=== PATIENT | female | born 2000 | race African-American/Black ===

== ENCOUNTER 2025-04-12 14:26 | Emergency (ER) | payer MEDICAID ==
[~2025-04-12] VITALS: Ht 167.6 cm; Wt 95.0 kg
[2025-04-12 14:34] VITALS: O2SAT 98
[2025-04-12] MEDS: LACTATED RINGERS 1,000 ML IV SCH (14:52)
[2025-04-12] MEDS: ONDANSETRON HCL 4MG/2ML INJ IV ONE (15:03)
[2025-04-12] MEDS: ACETAMINOPHEN 1000MG/100ML 100 ML IV ONE (15:03)
[2025-04-12 15:20] LABS: HEMATOCRIT. 35.0 % (36.0-48.0); HEMOGLOBIN. 11.5 g/dL (12.0-16.0); MEAN PLATELET VOLUME 8.3 fl (7.4-10.4); PLATELET 387 x1000/uL (130-400); RED BLOOD CELL COUNT 3.97 mill/uL (4.2-5.4); RED CELL DISTRIBUTION WIDTH 15.7 % (11.6-14.6)
[2025-04-12 15:38] LABS: CREATININE 0.8 mg/dL (0.6-1.0)
[2025-04-12 15:39] LABS: UREA NITROGEN BLOOD < 5 mg/dL (9-23)
[2025-04-12 15:40] LABS: ASPARTATE AMINOTRANSFERASE 12 IU/L (<34)
[2025-04-12 15:41] LABS: BILIRUBIN DIRECT 0.1 mg/dL (<=3.0); BILIRUBIN TOTAL 0.4 mg/dL (0.1-1.0); PROTEIN TOTAL 7.7 g/dL (6.0-8.3)
[2025-04-12 15:49] LABS: HCG SCREEN POSITIVE
[2025-04-12 16:45] LABS: BAND% 1.0 % (1.0-6.0); LYMPHOCYTES % MANUAL 2.0 % (20.0-60.0); MONOCYTES % MANUAL 6.0 % (2.0-8.0); NEUTROPHILS % MANUAL 91.0 % (45.0-75.0); PLATELET ESTIMATE NORMAL
[2025-04-12] MEDS ORDERED: METO-293 MT (16:49)
[2025-04-12 18:49] VITALS: BP 121/66; PULSE 61; RESP 16; TEMP 36.7; O2SAT 98
== END 2025-04-12 18:58 | disposition home or self-care (01) ==
LOC: ER 14:26
DX: O26.891 Other specified pregnancy related conditions, first trimester (principal); R10.13 Epigastric pain; R11.2 Nausea with vomiting, unspecified; R19.7 Diarrhea, unspecified; R10.2 Pelvic and perineal pain; Z32.01 Encounter for pregnancy test, result positive; Z3A.01 Less than 8 weeks gestation of pregnancy
CPT/HCPCS: 99285; 96374; 76705; 76801; 96361; 96375; 80076; 80048; 84703; 84702; 83690; 85025; 36415; 76817; J2405; J0131